=== PATIENT | female | born 1985 | race Caucasian/White ===

== ENCOUNTER 2016-05-21 12:38 | Emergency (ER) | payer OTHER ==
[2016-05-21 12:43] VITALS: RESP 16; O2SAT 99
[2016-05-21] MEDS ORDERED: ONDANSETRON 4 MG/2 ML VIAL IVP ONE (13:18)
[2016-05-21] MEDS ORDERED: NS 1,000 ML IV ONE (13:18)
[2016-05-21 13:33] LABS: % IMMATURE GRANULYOCYTES 0.5 % (0.0-1.1); ABSOLUTE IMMATURE GRANULOCYTES 0.09 10^3/uL (0.00-0.10); ADD DIFF? NO; ADD MORPH? NO; ADD SCAN? NO; ATYPICAL LYMPHOCYTE FLAG 10 (0-99); FRAGMENT RBC FLAG 0 (0-99); HEMATOCRIT 42.5 % (38.0-47.0); HEMOGLOBIN 14.2 g/dL (12.6-16.3); LEFT SHIFT FLG 0 (0-99); LIPEMIA HEMOLYSIS FLAG 80 (0-99); MEAN CELL HEMOGLOBIN 30.7 pg (27.9-34.1); MEAN CELL HEMOGLOBIN CONCENTR. 33.4 g/dL (32.4-36.7); MEAN PLATELET VOLUME 9.6 fL (8.7-11.7); PLATELET CLUMPS FLAG 20 (0-99); PLATELET COUNT 231 10^3/uL (150-400); RED BLOOD CELL COUNT 4.62 10^6/uL (4.18-5.33); RED CELL DISTRIBUTION WIDTH 12.6 % (11.5-15.2)
[2016-05-21 13:38] LABS: COLOR AMBER; LEUKOCYTE ESTERASE,URINE NEGATIVE (NEGATIVE); NITRITE,URINE POSITIVE (NEGATIVE)
[2016-05-21 13:41] LABS: BACTERIA TRACE /hpf (NONE SEEN); MUCUS 1+ /lpf (NONE-1+); RBC,URINE 50-182 /hpf (0-3)
[2016-05-21 14:01] LABS: ANION GAP 12 mEq/L (8-16); CALCIUM 9.5 mg/dL (8.5-10.4); CARBON DIOXIDE 24 mEq/l (22-31); CHLORIDE 107 mEq/L (97-110); CREATININE 0.6 mg/dL (0.6-1.0); GLOMERULAR FILTRATION RATE > 60; GLUCOSE 96 mg/dL (70-100); POTASSIUM 3.8 mEq/L (3.5-5.2); SODIUM 143 mEq/L (134-144)
--- NOTE | 2016-05-21 15:41 | EDPHY ---
H & P Time Seen by Provider: 05/21/16 13:12 HPI/ROS: CHIEF COMPLAINT: Urinary tract infection, diarrhea HISTORY OF PRESENT ILLNESS: 30-year-old female presents to the emergency department by private vehicle with concerns about possible urinary tract infection. Patient denies abdominal pain. She has some mild flank pain. She has had watery diarrhea over last 2-3 days. Denies blood in her stools. She did start her menstrual cycle yesterday. She denies . No fevers or chills. No nausea or vomiting. No URI symptoms. No recent travel. No known contaminated food or water. No ill contacts. REVIEW OF SYSTEMS: Constitutional: No fever, no chills. Eyes: No double or blurry vision. ENT: No sore throat. Respiratory: No cough, no shortness of breath. Cardiac: No chest pain. Gastrointestinal: No abdominal pain, vomiting or diarrhea. Genitourinary: Dysuria, urgency, frequency with urination Musculoskeletal: Mild low back pain. No neck pain. Skin: No rashes. Neurological: No headache. Past Medical/Surgical History: Negative Social History: Single Smoking Status: Never smoked Physical Exam: General Appearance: Alert, no distress. Afebrile and nontoxic-appearing. Eyes: Pupils equal and round. Extraocular motions are all intact. ENT: Mouth: Mucous membranes moist. Respiratory: No wheezing, rhonchi, or rales, lungs are clear to auscultation. Cardiovascular: Regular rate and rhythm. Gastrointestinal: Abdomen is soft and nontender, no masses, no rebound or guarding, bowel sounds normal. No CVA tenderness bilaterally. Neurological: Alert and oriented x 3, cranial nerves II through XII grossly intact Skin: Warm and dry, no rashes. Musculoskeletal: Nontender to palpate along the cervical, thoracic or lumbar spine. Neck is supple. Extremities: Full range of motion and no peripheral edema. Psychiatric: Patient is oriented X 3, there is no agitation. Constitutional: Initial Vital Signs Temperature (C) 36.9 C 05/21/16 12:41 Heart Rate 109 H 05/21/16 12:41 Respiratory Rate 16 05/21/16 12:41 Blood Pressure 111/67 05/21/16 12:41 O2 Sat (%) 99 05/21/16 12:41 O2 Delivery Mode Room Air Allergies/Adverse Reactions: codeine Allergy (Verified 05/21/16 12:43) Home Medications: Medication Instructions Recorded Cephalexin [Keflex] 500 mg PO QID #20 cap 05/21/16 Medical Decision Making ED Course/Re-evaluation: 30-year-old female presents with diarrhea and possible urinary tract infection. Urinalysis reveals white blood cells and red blood cells as well as trace bacteria. Urine cultures pending. The patient will be started on Keflex. I do not think clinically this patient has pyelonephritis. She has no CVA tenderness, vomiting fever. The patient did not have any episodes of diarrhea while she was in the emergency department over 3 hours. She received IV normal saline was feeling much better and is comfortable being discharged home. I doubt infectious diarrhea. Differential Diagnosis: Including but not limited to urinary tract infection, pyelonephritis, kidney stone, infectious diarrhea, viral diarrhea - Data Points Laboratory Results: Laboratory Results 05/21/16 13:25 05/21/16 13:25 05/21/16 05/21/16 13:25 12:40 WBC 17.86 H 10^3/uL (3.80-9.50) RBC 4.62 10^6/uL (4.18-5.33) Hgb 14.2 g/dL (12.6-16.3) Hct 42.5 % (38.0-47.0) MCV 92.0 fL (81.5-99.8) MCH 30.7 pg (27.9-34.1) MCHC 33.4 g/dL (32.4-36.7) RDW 12.6 % (11.5-15.2) Plt Count 231 10^3/uL (150-400) MPV 9.6 fL (8.7-11.7) Neut % (Auto) 86.0 H % (39.3-74.2) Lymph % (Auto) 8.4 L % (15.0-45.0) [place] % (Auto) 4.3 L % (4.5-13.0) Eos % (Auto) 0.5 L % (0.6-7.6) Baso % (Auto) 0.3 % (0.3-1.7) Nucleat RBC Rel Count 0.0 % (0.0-0.2) Absolute Neuts (auto) 15.37 H 10^3/uL (1.70-6.50) Absolute Lymphs (auto) 1.50 10^3/uL (1.00-3.00) Absolute Monos (auto) 0.76 10^3/uL (0.30-0.80) Absolute Eos (auto) 0.09 10^3/uL (0.03-0.40) Absolute Basos (auto) 0.05 10^3/uL (0.02-0.10) Absolute Nucleated RBC 0.00 10^3/uL (0-0.01) Immature Gran % 0.5 % (0.0-1.1) Immature Gran # 0.09 10^3/uL (0.00-0.10) Sodium 143 mEq/L (134-144) Potassium 3.8 mEq/L (3.5-5.2) Chloride 107 mEq/L (97-110) Carbon Dioxide 24 mEq/l (22-31) Anion Gap 12 mEq/L (8-16) BUN 9 mg/dL (7-23) Creatinine 0.6 mg/dL (0.6-1.0) Estimated GFR > 60 Glucose 96 mg/dL (70-100) Calcium 9.5 mg/dL (8.5-10.4) Urine Color JOAQUIN Urine Appearance HAZY Urine pH 5.0 (5.0-7.5) Ur Specific [place] 1.019 (1.002-1.030) Urine Protein NEGATIVE (NEGATIVE) Urine Ketones NEGATIVE (NEGATIVE) Urine Blood 3+ H (NEGATIVE) Urine Nitrate POSITIVE H (NEGATIVE) Urine Bilirubin NEGATIVE (NEGATIVE) Urine Urobilinogen 2.0 H EU (0.2-1.0) Ur Leukocyte Esterase NEGATIVE (NEGATIVE) Urine RBC 50-182 H /hpf (0-3) Urine WBC 5-10 H /hpf (0-3) Ur Epithelial Cells 1+ /lpf (NONE-1+) Urine Bacteria TRACE H /hpf (NONE SEEN) Urine Mucus 1+ /lpf (NONE-1+) Ur Culture Indicated? INDICATED H (NI) Urine Glucose NEGATIVE (NEGATIVE) Medications Given: Discontinued Medications Sodium Chloride (Ns) 1,000 mls @ 0 mls/hr IV ONCE ONE PRN Reason: Wide Open Stop: 05/21/16 13:19 Last Admin: 05/21/16 13:27 Dose: 1,000 mls Ondansetron HCl (Zofran) 4 mg IVP EDNOW ONE Stop: 05/21/16 13:19 Last Admin: 05/21/16 13:28 Dose: 4 mg Departure - Departure Disposition: Home, Routine, Self-Care Clinical Impression: Diarrhea Qualifiers: Diarrhea type: unspecified type Qualifier Code: (R19.7) Diarrhea, unspecified Urinary tract infection Qualifiers: Urinary tract infection type: acute cystitis Hematuria presence: without hematuria Qualifier Code: (N30.00) Acute cystitis without hematuria Condition: Good Instructions: Acute Diarrhea (ED), Urinary Tract Infection in Women (ED) Additional Instructions: Keflex as directed for 5 days. Return if you develop a fever, worsening back pain, or if you feel worse in any way. Call [phone] for the results of your urine culture in 48 hours. 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
[2016-05-21 15:48] VITALS: BP 114/72; PULSE 84; TEMP 98.2
== END 2016-05-21 15:48 | disposition home or self-care (01) ==
DX: R19.7 Diarrhea, unspecified (principal); N30.00 Acute cystitis without hematuria; B96.89 Other specified bacterial agents as the cause of diseases classified elsewhere
CPT/HCPCS: 96374; J2405